=== PATIENT | female | born 1945 | race Caucasian/White ===

== ENCOUNTER 2023-11-03 10:47 | Emergency (ER) | payer MEDICARE, OTHER, SELFPAY ==
[2023-11-03 10:48] VITALS: BP 131/47; PULSE 82; RESP 20; TEMP 36.1; O2SAT 96
--- NOTE | 2023-11-03 11:24 | ED.GENADULT ---
HPI - General Adult General Chief complaint: Upper Respiratory Infection Stated complaint: sore throat; wheezy; sinus drainage Time Seen by Provider: 11/03/23 10:58 History of Present Illness HPI narrative: The patient is a 78-year-old woman with a history of prior stroke, no residual, on aspirin 81 mg p.o. b.i.d., hypertension, hyperlipidemia, hard of hearing, bilateral carotid artery stenosis with no intervention, ex-smoker. She is not vaccinated against COVID-19. She has not contracted COVID-19. For the last 5 days, the patient has had URI symptoms as manifested by a cough productive of thick mucus, sore throat, voice changes, rhinorrhea in the morning which resolved subsequently during the day. She has rib cage discomfort on the lateral aspect with the coughing spells. she denies fevers or chills or diaphoresis. She reports hearing wheezing at times. She is unable to sleep from the symptoms. She is able to swallow liquids and eat solids. No nasal congestion. No substernal chest pain or abdominal pain or nausea vomiting or UTI symptoms. She is currently caring for a 3-month-old DCFS baby since yesterday. The baby is not ill. No sick contacts. Related Data Home Medications Medication Instructions Recorded Confirmed lisinopril 20 1 tablet PO DAILY 11/03/23 11/03/23 mg-hydrochlorothiazide 12.5 mg tablet pravastatin 40 mg tablet 40 mg PO DAILY 11/03/23 11/03/23 Allergies Allergy/AdvReac Type Severity Reaction Status Date / Time Penicillins Allergy Unknown Verified 10/31/10 11:40 Review of Systems Review of Systems: All systems reviewed & are unremarkable except as noted in HPI and below Constitutional: Constitutional: Denies chills, Denies excessive sweating, Denies fatigue, Denies fever(s), Denies headache(s) and Denies weakness Eyes: Eyes: Denies change in vision and Denies photophobia ENT: Denies dysphagia, Denies dizziness, Denies headache(s), Denies lip swelling, Denies nasal congestion, Reports sore throat and Denies tongue swelling Cardiovascular: Cardiovascular: Denies chest pain, Denies syncope, Denies rapid heart rate and Denies dyspnea Respiratory: Respiratory: Reports cough, Denies dyspnea and Reports wheezing Gastrointestinal: Gastrointestinal: Denies abdominal pain, Denies constipation, Denies dysphagia, Denies diarrhea, Denies nausea and Denies vomiting Genitourinary: Genitourinary: Denies hematuria, Denies urinary frequency, Denies dysuria and Denies urinary urgency Musculoskeletal: Musculoskeletal: Denies back pain, Denies myalgias, Denies arthralgias, Denies joint swelling and Denies numbness Integumentary/Breasts: Skin/Breast: Denies pruritus, Denies erythema and Denies rash Neurologic: Denies confusion, Denies dizziness, Denies syncope, Denies headache(s), Denies focal weakness, Denies numbness and Denies weakness Psychiatric: Psychiatric: Denies anxiety and Denies confusion Endocrine: Endocrine: Denies excessive sweating and Denies fatigue Hematologic/Lymphatic: Hematologic/Lymphatic: Denies easy bleeding and Denies easy bruising Allergic/Immunologic: Allergic/Immunologic: Denies lip swelling, Denies tongue swelling and Denies wheezing PMFSH Family History Family History Other Cerebrovascular accident Diabetes mellitus Social History Social History Smoking status: Former smoker Smoking end date: 07/15/08 Alcohol intake: current Exam Const: General: healthy appearing, no acute distress, alert and well nourished Nutritional Appearance: well nourished Orientation/consciousness: patient oriented x3 Limitations: no limitations HENMT: Head: normal to inspection Ears: external ears normal Face/Nose/Sinus: normal facial exam Face and sinus: normal facial exam Mouth: Yes moist mucous membranes Throat: posterior oropharynx normal Other: No rhinorr
[2023-11-03 11:42] LABS: Strep Group A RT-PCR NOT DETECTED (Negative)
[2023-11-03 11:49] LABS: SARS-CoV-2 RNA PCR Negative (Negative)
[2023-11-03 11:50] LABS: Influenza A QL RT-PCR Negative (Negative); Influenza B QL RT-PCR Negative (Negative); RSV RNA, RT-PCR Negative (Negative)
[2023-11-03] MEDS: AZITHROMYCIN 250 MG TABLET 500 MG PO (12:03)
[2023-11-03] MEDS: BENZONATATE 100 MG CAPSULE PO (12:04)
[2023-11-03 12:06] VITALS: BP 131/57; PULSE 82; RESP 20; O2SAT 98
== END 2023-11-03 12:06 | disposition home or self-care (01) ==
PROVIDERS: Emergency Provider Emergency Medicine; PCP Family Medicine
DX: J06.9 Acute upper respiratory infection, unspecified (principal); I10 Essential (primary) hypertension; E78.5 Hyperlipidemia, unspecified; Z79.82 Long term (current) use of aspirin; Z87.891 Personal history of nicotine dependence; Z20.822 Contact with and (suspected) exposure to COVID-19
CPT/HCPCS: 87637; 87651; 99283; A9270

== ENCOUNTER 2024-04-13 00:28 | Emergency (ER) | payer MEDICARE, OTHER, SELFPAY ==
[2024-04-13 00:31] VITALS: BP 168/66; PULSE 83; RESP 18; TEMP 36.1; O2SAT 94
--- NOTE | 2024-04-13 00:49 | ED.EAR ---
HPI - Ear Problem General Chief complaint: Ear Stated complaint: ear pain Source: patient Mode of arrival: ambulatory Limitations: no limitations History of Present Illness HPI Narrative: Patient is a 78-year-old female with left ear pain. She has been on multiple regimens from her primary doctor. She has Cortisporin pending to be picked up at her next option. She has hydrocodone. She has declined to get Toradol this evening. She has declined for me to examine her ear. She was hoping to get something stronger for pain control at this time. MD Complaint: ear pain Location: left ear Duration: constant Severity: moderate Relieving factors: nothing Exacerbating factors: nothing Discharge from ear: Reports no Associated symptoms ear: external ear tenderness, ear swelling and other ( left face pain with the earache) Treatment prior to arrival: eardrops and oral analgesic Related Data Home Medications Medication Instructions Recorded Confirmed lisinopril 20 1 tablet PO DAILY 11/03/23 04/13/24 mg-hydrochlorothiazide 12.5 mg tablet pravastatin 40 mg tablet 40 mg PO DAILY 11/03/23 04/13/24 hydrocodone 5 mg-acetaminophen 325 1 tablet PO DAILY 04/13/24 04/13/24 mg tablet ofloxacin 0.3 % ear drops 1 drp LEFT EAR DAILY 04/13/24 04/13/24 sulfamethoxazole 800 1 tablet PO DAILY 04/13/24 04/13/24 mg-trimethoprim 160 mg tablet Allergies Allergy/AdvReac Type Severity Reaction Status Date / Time Penicillins Allergy Unknown Hives Verified 04/13/24 00:40 Review of Systems Review of Systems: All systems reviewed & are unremarkable except as noted in HPI and below Constitutional: Constitutional: Reports no additional constitutional complaints Eyes: Eyes: Reports no additional eye complaints ENT: Reports system reviewed and no additional complaints, except as documented Cardiovascular: Cardiovascular: Reports no additional cardiovascular complaints Respiratory: Respiratory: Reports no additional respiratory complaints Gastrointestinal: Gastrointestinal: Reports no additional gastrointestinal complaints Genitourinary: Genitourinary: Reports no additional female genitourinary complaints Musculoskeletal: Musculoskeletal: Reports no additional musculoskeletal complaints Integumentary/Breasts: Skin/Breast: Reports system reviewed and no additional complaints, except as docu Neurologic: Reports system reviewed and no additional complaints, except as documented Psychiatric: Psychiatric: Reports no additional psychiatric complaints Endocrine: Endocrine: Reports no additional endocrine complaints Hematologic/Lymphatic: Hematologic/Lymphatic: Reports no additional hematologic/lymphatic complaints Allergic/Immunologic: Allergic/Immunologic: Reports no additional allergic/immunologic complaints PMFSH Family History Family History Other Cerebrovascular accident Diabetes mellitus Social History Social History Smoking status: Former smoker Smoking end date: 07/15/08 Alcohol intake: current Exam Const: General: healthy appearing Nutritional Appearance: well nourished Orientation/consciousness: patient oriented x3 HENMT: Head: normal to inspection Ears: external ears normal Face/Nose/Sinus: Normal external nose present Other: patient declined ear examination at this time Eyes: Conjunctivae: conjunctivae normal Pupils: Equal, round and reactive pupils present EOM: EOMs intact bilaterally Neck: Neck: normal visual inspection Chest: Chest palpation & inspection: normal inspection of the chest Resp: Effort & Inspection: normal respiratory effort and not labored Auscultation: clear to auscultation bilaterally and no crackles Cardio: Rate: regular rate Rhythm: regular rhythm Heart sounds: no murmurs GI: Inspection: non-distended GI Palp: Yes Soft to palpation and No Tenderness t
== END 2024-04-13 01:08 | disposition home or self-care (01) ==
PROVIDERS: Emergency Provider Emergency Medicine; PCP Family Medicine
DX: H60.92 Unspecified otitis externa, left ear (principal); Z79.899 Other long term (current) drug therapy; Z79.891 Long term (current) use of opiate analgesic; Z87.891 Personal history of nicotine dependence
CPT/HCPCS: 99281

== ENCOUNTER 2024-10-03 19:37 | Emergency (ER) | payer MEDICARE, OTHER, SELFPAY ==
--- OUTSIDE RECORDS SUMMARY | 2024-10-03 19:39 | XMS_ITS | Clinical Summary ---
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
[2024-10-03 19:40] VITALS: BP 189/58; PULSE 92; RESP 20; TEMP 36.5; O2SAT 98
[2024-10-03 19:56] VITALS: BP 169/57; PULSE 81; RESP 18; O2SAT 98
--- NOTE | 2024-10-03 20:07 | ED.EPISTAXIS ---
HPI - Epistaxis General Chief complaint: Epistaxis Stated complaint: Nose Bleed Time Seen by Provider: 10/03/24 19:39 Source: patient and family Mode of arrival: ambulatory Limitations: no limitations History of Present Illness HPI Narrative: This is a 79-year-old female with the history of carotid artery disease presents with epistaxis mainly from the left nostril, patient is on aspirin otherwise no other symptoms no cough or congestion no shortness of breath no audible wheezing no fever chills. No nausea vomiting or abdominal pain no chest pain or shortness of breath. MD complaint: epistaxis Location: left nostril Onset (ago): minute(s) Duration: constant Context: aspirin use Related Data Home Medications ?Medication ?Instructions ?Recorded ?Confirmed ?Last Taken ?Type lisinopril 20 1 tablet PO DAILY 11/03/23 04/13/24 Unknown History mg-hydrochlorothiazide 12.5 mg tablet pravastatin 40 mg tablet 40 mg PO DAILY 11/03/23 04/13/24 Unknown History hydrocodone 5 mg-acetaminophen 325 1 tablet PO DAILY 04/13/24 04/13/24 Unknown History mg tablet ofloxacin 0.3 % ear drops 1 drp LEFT EAR DAILY 04/13/24 04/13/24 Unknown History sulfamethoxazole 800 1 tablet PO DAILY 04/13/24 04/13/24 Unknown History mg-trimethoprim 160 mg tablet Allergies Allergy/AdvReac Type Severity Reaction Status Date / Time Penicillins Allergy Unknown Hives Verified 04/13/24 00:40 Review of Systems Review of Systems: All systems reviewed & are unremarkable except as noted in HPI and below PMFSH Past Medical History Medical History Carotid artery disease Family History Family History Other Cerebrovascular accident Diabetes mellitus Social History Social History Smoking status: Former smoker Smoking end date: 07/15/08 Alcohol intake: current Exam Const: General: healthy appearing and no acute distress Nutritional Appearance: well nourished and obese Orientation/consciousness: patient oriented x3 Limitations: no limitations HENMT: Other: crusty blood left nostril otherwise no current bleeding Eyes: Conjunctivae: conjunctivae normal Neck: Neck: normal visual inspection, no lymphadenopathy and no meningeal signs Chest: Chest palpation & inspection: normal inspection of the chest Resp: Effort & Inspection: normal respiratory effort Auscultation: clear to auscultation bilaterally Cardio: Rate: regular rate Rhythm: regular rhythm GI: GI Palp: Yes Soft to palpation Auscultation: normal bowel sounds Course Course Emergency Course: nose clamp applied and patient leaned forward epistaxis had stopped. Vital Signs Vital signs: Vital Signs Temperature 36.5 C 10/03/24 19:40 Pulse Rate 92 10/03/24 19:40 Respiratory Rate 20 10/03/24 19:40 Blood Pressure 189/58 H 10/03/24 19:40 Pulse Oximetry 98 10/03/24 19:40 Oxygen Delivery Room Air 10/03/24 19:40 Temperature 36.5 C 10/03/24 19:40 Pulse Rate 81 10/03/24 19:56 Respiratory Rate 18 10/03/24 19:56 Blood Pressure 169/57 H 10/03/24 19:56 Pulse Oximetry 98 10/03/24 19:56 Oxygen Delivery Room Air 10/03/24 19:56 Critical Care Time Critical Care Time Critical Care Time: No Discharge Plan Discharge Clinical Impression: Epistaxis Patient Disposition: Home, Self-Care Condition: Stable Instructions: Antibiotic Form, Nosebleed (ED) Additional Instructions: Advised to use pressure can use indirect ice to the bridge of nose can follow with primary if symptoms persist or worsen. Patient Language: Libyan Prescriptions: No Action lisinopril-hydrochlorothiazide 20-12.5 mg tablet 1 tablet PO DAILY pravastatin 40 mg tablet 40 mg PO DAILY hydrocodone-acetaminophen 5-325 mg tablet 1 tablet PO DAILY sulfamethoxazole-trimethoprim 800-160 mg tablet 1 tablet PO DAILY ofloxacin 0.3 % drops 1 drp LEFT EAR DAILY Follow-up/Referrals: Isidoro Boyce MD [Primary Care Provider] - Time of Disposition: 20:10
--- OUTSIDE RECORDS SUMMARY | 2024-10-03 20:13 | XMS_ITS | Clinical Summary ---
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
[2024-10-03 20:24] VITALS: BP 140/55; PULSE 80; RESP 18; TEMP 36.6; O2SAT 97
== END 2024-10-03 20:24 | disposition home or self-care (01) ==
PROVIDERS: Emergency Provider Emergency Medicine; PCP Family Medicine
DX: R04.0 Epistaxis (principal); I25.10 Atherosclerotic heart disease of native coronary artery without angina pectoris; Z87.891 Personal history of nicotine dependence
CPT/HCPCS: 99281

== ENCOUNTER 2025-02-04 14:43 | Outpatient (CLI) | payer MEDICARE, OTHER, SELFPAY ==
--- NOTE | ~2025-02-04 | MM_ITS ---
EXAMINATION: MM screening peter BI w [facility] HISTORY: Screening TECHNIQUE: Craniocaudal and mediolateral oblique 3-D tomosynthesis images were obtained and synthetic 2-D images were generated. CAD analysis was submitted and interpreted. COMPARISON: Comparison to multiple prior studies sequentially, with oldest reviewed study dated 2014. BREAST PARENCHYMAL COMPOSITION: There are scattered areas of fibroglandular density. FINDINGS: There is no evidence of suspicious mass, calcification, or architectural distortion to sug gest malignancy in either breast. IMPRESSION: 1. No mammographic evidence of malignancy. 2. Recommend routine screening mammography in one year. BI-RADS Category 1: Negative Reviewed, dictated and finalized at location B.
--- OUTSIDE RECORDS SUMMARY | 2025-02-04 14:48 | XMS_ITS | Clinical Summary ---
Author Organization 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
== END 2025-02-04 14:44 | disposition home or self-care (01) ==
PROVIDERS: PCP Family Medicine; Visit Provider Family Medicine
DX: Z12.31 Encounter for screening mammogram for malignant neoplasm of breast (principal)
CPT/HCPCS: 77063; 77067